=== PATIENT | female | born 1975 | race Caucasian/White ===

== ENCOUNTER 2020-07-03 12:13 | Emergency (ER) | payer BC ==
[2020-07-03] MEDS ORDERED: MORPHINE SULFATE 4 MG INJ IV ONE ×2 (12:43→14:32)
[2020-07-03] MEDS ORDERED: Pepcid 20 MG VIAL IV ONE ×2 (12:43→12:55)
[2020-07-03] MEDS ORDERED: Zofran 4 MG/2 ML VIAL IV ONE (12:43)
[2020-07-03] MEDS ORDERED: Sodium Chloride 0.9% 1000 ML 1,000 ML IV STA (12:43)
[2020-07-03] MEDS ORDERED: MORPHINE SULFATE 4 MG INJ ONE ×2 (12:55→14:36)
[2020-07-03] MEDS ORDERED: Sodium Chloride 0.9% 1000 ML 1,000 ML ONE (12:55)
[2020-07-03] MEDS ORDERED: Zofran 4 MG/2 ML VIAL ONE (12:55)
[2020-07-03 13:10] LABS: Absolute Neutrophil Ct (ANC) 2.32 (1.4-6.9); BASOPHIL % 0.2 % (0.0-0.4); Basophil (Absolute #) 0.01 (0-0.4); Eosinophil % 1.2 % (0.00-5.0); Eosinophil (Absolute #) 0.06 (0-0.5); Hematocrit 40.1 % (35-47); Hemoglobin 13.3 gm/dl (12.0-16.0); Lymphocyte (Absolute #) 2.12 (1.0-4.6); Lymphocytes % 43.4 % (24.0-44.0); Mean Cell Volume 85.5 fl (78-100); Mean Corpuscular Hemoglobin 28.4 pg (26-32); Mean Corpuscular Hgb Concent. 33.2 g/dl (32-36); Mean Platelet Volume 8.8 fl (7.5-11.0); Monocyte (Absolute #) 0.38 (0.0-1.3); Monocytes % 7.8 % (0.0-12.0); Neutrophil % 47.4 % (36.0-66.0); Platelet Count 266 K/mm3 (150-450); Red Blood Count 4.69 M/mm3 (4.1-5.4); Red Cell Distribution Width 13.6 % (11.5-14.0); White Blood Count 4.9 K/mm3 (4.0-10.5)
[2020-07-03 13:13] LABS: Appearance CLEAR (CLEAR); Bacteria FEW /HPF (NEGATIVE); Bilirubin NEGATIVE (NEGATIVE); Blood NEGATIVE Ery/ul (0-5); Epithelial Cells RARE /HPF (FEW); Glucose NEGATIVE (NEGATIVE); Ketones NEGATIVE (NEGATIVE); Leukocyte Esterase NEGATIVE (NEGATIVE); Mucus SLIGHT /HPF (NEGATIVE); Nitrite NEGATIVE (NEGATIVE); Protein,Urine Dip NEGATIVE (Negative); Specific Gravity 1.004 (1.005-1.025); Urobilinogen NEGATIVE mg/dL (0-1)
[2020-07-03 13:21] LABS: ALBUMIN 4.8 g/dL (3.5-5.0); ALKALINE PHOSPHATASE 55 U/L (38-126); AMYLASE 143 U/L (30-110); ANION GAP 10.9 MEQ/L (5-15); BLOOD UREA NITROGEN 18 mg/dL (7-17); CHLORIDE 102 mmol/L (98-107); Calcium 9.4 mg/dL (8.4-10.2); Carbon Dioxide 30 mmol/L (22-30); EST GLOMERULAR FILTRATION RATE > 60.0 ML/MIN; Glucose 94 mg/dL (74-106); LIPASE 200 U/L (23-300); Potassium 4.3 mmol/L (3.5-5.1); SGOT/AST 27 U/L (14-36); SGPT/ALT 18 U/L (0-35); SODIUM 138 mmol/L (137-145); Total Protein 8.8 g/dL (6.3-8.2)
--- NOTE | 2020-07-03 14:09 | ERPHSYRPT ---
- History of Present Illness Time Seen by Provider: 07/03/20 12:36 Historian: patient Exam Limitations: no limitations Patient Subjective Stated Complaint: pt has right upper quad pain since last night getting worse with nausea,BM today that was normal, no difficulty with voiding Triage Nursing Assessment: pt alert, walked in with face mask in place,holding onto right side of abd , no edema, skin w/d/p Physician History: 45 years old female presented to the ER with chief complaint of right upper quadrant pain sudden onset last night which lasted for almost an hour and eased up on its own before she went to bed. This morning she woke up with pain right upper quadrant again moderate to severe intensity, sharp shooting in nature, comes and goes, aggravated with palpation and no significant relieving factors, associated with nausea but no vomiting. Denies fever chills or cough. No sick contact. Timing/Duration: yesterday, sudden, worse Activities at Onset: rest Quality: sharpness, stabbing Abdominal Pain Onset Location: RUQ Pain Radiation: no radiation Severity of Pain-Max: severe Severity of Pain-Current: moderate Modifying Factors: Worsens With: palpation Associated Symptoms: nausea, No chest pain, No vomiting Previous symptoms: no prior history Allergies/Adverse Reactions: No Known Drug Allergies Allergy (Verified 07/03/20 12:28) Home Medications: Alprazolam 1 mg [Xanax 1 mg] 1 mg PO HSPRN PRN 08/02/13 [History] Estradiol 1 mg [Estrace 1 mg] 1 mg PO DAILY 08/02/13 [History] Levothyroxine Sodium 1 ea DAILY 07/03/20 [History] Hx Tetanus, Diphtheria Vaccination/Date Given: Yes Hx Influenza Vaccination/Date Given: No Hx Pneumococcal Vaccination/Date Given: No Immunizations Up to Date: Yes Travel Risk - International Travel Have you traveled outside of the country in past 3 weeks: No - Coronavirus Screening Are you exhibiting any of the following symptoms?: No Close contact with a COVID-19 positive Pt in past 14-21 Days: Yes - Review of Systems Constitutional: No Symptoms Eyes: No Symptoms Ears, Nose, & Throat: No Symptoms Respiratory: No Symptoms Cardiac: No Symptoms Abdominal/Gastrointestinal: Abdominal Pain, Nausea Genitourinary Symptoms: No Symptoms Musculoskeletal: No Symptoms Skin: No Symptoms Neurological: No Symptoms Psychological: No Symptoms Endocrine: No Symptoms Hematologic/Lymphatic: No Symptoms Immunological/Allergic: No Symptoms - Past Medical History Pertinent Past Medical History: Yes Psycho-Social History: Anxiety - Past Surgical History Past Surgical History: Yes (see history of present illness) Neuro Surgical History: No Pertinent History Cardiac: No Pertinent History Respiratory: No Pertinent History Gastrointestinal: No Pertinent History Genitourinary: No Pertinent History Musculoskeletal: Orthopedic Surgery Female Surgical History: Hysterectomy Other Surgical History: LEFT SHOULDER BONE SPURS SHAVED OFF, knee surg - Social History Smoking Status: Never smoker Exposure to second hand smoke: No Drug Use: none Patient Lives Alone: No - Female History Hx Last Menstrual Period: hyester Hx Now: No - Nursing Vital Signs Nursing Vital Signs: Initial Vital Signs Pulse Rate 96 H 07/03/20 14:51 Respiratory Rate 18 07/03/20 14:51 Blood Pressure 119/80 07/03/20 14:51 O2 Sat by Pulse Oximetry 97 07/03/20 14:51 Pain Scale Pain Intensity 0 - Physical Exam General Appearance: no apparent distress, alert Eye Exam: PERRL/EOMI Ears, Nose, Throat Exam: normal ENT inspection, TMs normal, pharynx normal Neck Exam: normal inspection, non-tender, supple, full range of motion Respiratory Exam: normal breath sounds, lungs clear Cardiovascular Exam: regular rate/rhythm, normal heart sounds Gastrointestinal/Abdomen Exam: soft, normal bowel sounds, tenderness (Right upper quadrant. Positive Armijo sign.), guarding Back Exam: normal inspection, normal range of motion Extremity Exam: normal inspection, normal range of motion Neurologic Exam: alert, oriented x 3, cooperative Skin Exam: normal color SpO2 Interpretation: normal O2 Delivery: Room Air Ordered Tests: Active Orders 24 hr Category Date Time Status IV Insertion STAT Care 07/03/20 12:43 Completed NPO (ED) STAT Care 07/03/20 12:43 Completed ABDOMEN AND PELVIS W CONTRAST [CT] Stat Exams 07/03/20 13:44 Completed GALLBLADDER [US] Stat Exams 07/03/20 16:47 Taken AMYLASE Stat Lab 07/03/20 12:43 Completed CBC W DIFF Stat Lab 07/03/20 12:43 Completed CMP Stat Lab 07/03/20 12:43 Completed LIPASE Stat Lab 07/03/20 12:43 Completed UA W/RFX UR CULTURE Stat Lab 07/03/20 13:01 Completed Medication Summary Discontinued Medications Generic Name Dose Route Start Last Admin Trade Name Prasanna PRN Reason Stop Dose Admin Al Hydrox/Mg Hydrox/Simethicone Confirm 07/03/20 14:36 Maalox Es 30 Ml Unit Dose Administered 07/03/20 14:37 Dose 30 ml .ROUTE .STK-MED ONE Famotidine 20 mg 07/03/20 12:43 07/03/20 13:02 Pepcid 20 Mg Vial IV 07/03/20 12:44 20 mg STAT ONE Administration Famotidine Confirm 07/03/20 12:55 Pepcid 20 Mg Vial Administered 07/03/20 12:56 Dose 20 mg IV .STK-MED ONE Sodium Chloride 1,000 mls @ 999 mls/hr 07/03/20 12:43 07/03/20 12:57 Sodium Chloride 0.9% 1000 Ml IV 07/03/20 13:43 999 mls/hr .Q1H1M STA Administration Sodium Chloride Confirm 07/03/20 12:55 Sodium Chloride 0.9% 1000 Ml Administered 07/03/20 12:56 Dose 1,000 mls @ ud .ROUTE .STK-MED ONE Lidocaine HCl Confirm 07/03/20 14:36 Xylocaine Hcl Viscous * Administered 07/03/20 14:37 Dose 15 ml .ROUTE .STK-MED ONE Magnesium Hydroxide 45 ml 07/03/20 14:32 07/03/20 17:03 Gi Cocktail 45 Ml (Maalox/Lidocaine) PO 07/03/20 14:33 Not Given STAT ONE Morphine Sulfate 4 mg 07/03/20 12:43 07/03/20 13:01 Morphine Sulfate 4 Mg Inj IV 07/03/20 12:44 4 mg STAT ONE Administration Morphine Sulfate Confirm 07/03/20 12:55 Morphine Sulfate 4 Mg Inj Administered 07/03/20 12:56 Dose 4 mg .ROUTE .STK-MED ONE Morphine Sulfate 4 mg 07/03/20 14:32 07/03/20 14:38 Morphine Sulfate 4 Mg Inj IV 07/03/20 14:33 4 mg STAT ONE Administration Morphine Sulfate Confirm 07/03/20 14:36 Morphine Sulfate 4 Mg Inj Administered 07/03/20 14:37 Dose 4 mg .ROUTE .STK-MED ONE Ondansetron HCl 4 mg 07/03/20 12:43 07/03/20 12:59 Zofran 4 Mg/2 Ml Vial IV 07/03/20 12:44 4 mg STAT ONE Administration Ondansetron HCl Confirm 07/03/20 12:55 Zofran 4 Mg/2 Ml Vial Administered 07/03/20 12:56 Dose 4 mg .ROUTE .STK-MED ONE Lab/Rad Data: Laboratory Result Diagrams 07/03/20 12:43 07/03/20 12:43 Laboratory Results 07/03/20 07/03/20 07/03/20 Range/Units 13:01 12:43 12:43 WBC 4.9 (4.0-10.5) K/mm3 RBC 4.69 (4.1-5.4) M/mm3 Hgb 13.3 (12.0-16.0) gm/dl Hct 40.1 (35-47) % MCV 85.5 (78-100) fl MCH 28.4 (26-32) pg MCHC 33.2 (32-36) g/dl RDW 13.6 (11.5-14.0) % Plt Count 266 (150-450) K/mm3 MPV 8.8 (7.5-11.0) fl Gran % 47.4 (36.0-66.0) % Eos # (Auto) 0.06 (0-0.5) Absolute Lymphs (auto) 2.12 (1.0-4.6) Absolute Monos (auto) 0.38 (0.0-1.3) Lymphocytes % 43.4 (24.0-44.0) % Monocytes % 7.8 (0.0-12.0) % Eosinophils % 1.2 (0.00-5.0) % Basophils % 0.2 (0.0-0.4) % Absolute Granulocytes 2.32 (1.4-6.9) Basophils # 0.01 (0-0.4) Sodium 138 (137-145) mmol/L Potassium 4.3 (3.5-5.1) mmol/L Chloride 102 (98-107) mmol/L Carbon Dioxide 30 (22-30) mmol/L Anion Gap 10.9 (5-15) MEQ/L BUN 18 H (7-17) mg/dL Creatinine 0.80 (0.52-1.04) mg/dL Estimated GFR > 60.0 ML/MIN Glucose 94 (74-106) mg/dL Calcium 9.4 (8.4-10.2) mg/dL Total Bilirubin 0.70 (0.2-1.3) mg/dL AST 27 (14-36) U/L ALT 18 (0-35) U/L Alkaline Phosphatase 55 (38-126) U/L Serum Total Protein 8.8 H (6.3-8.2) g/dL Albumin 4.8 (3.5-5.0) g/dL Amylase 143 H (30-110) U/L Lipase 200 (23-300) U/L Urine Color STRAW (YELLOW) Urine Appearance CLEAR (CLEAR) Urine pH 7.0 (5-6) Ur Specific [place] 1.004 (1.005-1.025) Urine Protein NEGATIVE (Negative) Urine Ketones NEGATIVE (NEGATIVE) Urine Blood NEGATIVE (0-5) Lance/ul Urine Nitrite NEGATIVE (NEGATIVE) Urine Bilirubin NEGATIVE (NEGATIVE) Urine Urobilinogen NEGATIVE (0-1) mg/dL Ur Leukocyte Esterase NEGATIVE (NEGATIVE) Urine WBC (Auto) 3-5 (0-5) /HPF Urine RBC (Auto) NONE (0-2) /HPF U Epithel Cells (Auto) RARE (FEW) /HPF Urine Bacteria (Auto) FEW (NEGATIVE) /HPF Urine Mucus (Auto) SLIGHT (NEGATIVE) /HPF Urine Culture Reflexed NO (NO) Urine Glucose NEGATIVE (NEGATIVE) mg/dL - Progress Progress: improved, pain not gone completely, re-examined Progress Note: 07/03/20 blood work-up is done for acute abdomen including CT abdomen pelvis with contrast which showed some element of gastritis but no acute cholecystitis. She has a negative ultrasound. Normal white count, unremarkable chemistries including liver functions. She is given symptomatic treatment with morphine/Pepcid/GI cocktail, on reevaluation feeling better. Her pain is not completely relieved. I believe she has gastritis, will start her on Carafate and Protonix and outpatient follow-up with primary care and gastroenterology r ecommended to have possible upper GI scope for further evaluation of gastritis. At this point patient does not need to be admitted or needs any further work-up and is stable for discharge with outpatient follow-up. Discussed signs symptoms of worsening needing return to ER which he seems understanding. Counseled pt/family regarding: lab results, diagnosis, need for follow-up, rad results - Departure Departure Disposition: Home Clinical Impression: Gastritis Qualifiers: Gastritis type: unspecified gastritis Chronicity: acute Gastritis bleeding: without bleeding Qualified Code(s): K29.00 - Acute gastritis without bleeding Condition: Stable Critical Care Time: No Referrals: JEFFERY MAI NP [Primary Care Provider] - (Call tomorrow for appointment) MARRY SHETH JR [NON-STAFF PHY W/O PRIVILEGES] - (Call tomorrow for appointment) Instructions: Acute Abdomen (Belly Pain), Adult (DC), Gastritis (DC) Additional Instructions: Do not take ibuprofen. Take Tylenol as needed. Follow-up with primary care and gastroenterology for reevaluation. Return to ER for any worsening. Prescriptions: Sucralfate 1 gm [Carafate 1 GM] 1 g PO ACHS #60 tablet PANTOPRAZOLE 40 mg Tablet [Protonix 40MG Tablet] 40 mg PO QAM 30 Days #30 tab
[2020-07-03] MEDS ORDERED: MAALOX ES 30 ML UNIT DOSE ONE (14:36)
[2020-07-03] MEDS ORDERED: XYLOCAINE HCl Viscous ONE (14:36)
[2020-07-03] MEDS: GI COCKTAIL 45 ML (Maalox/Lidocaine) PO ONE ×2 (14:38→17:03)
[2020-07-03 16:35] VITALS: BP 144/76; PULSE 59; O2SAT 99
--- NOTE | 2020-07-03 16:53 | XRAY ---
Indication: Right upper quadrant pain and nausea. Multiple contiguous axial images obtained through the abdomen and pelvis using 80 cc Isovue 370 contrast only. Comparison: None Lung bases demonstrates mild dependent atelectasis. No infiltrate or effusion. Heart is not enlarged. Noncontrasted stomach and bowel loops appear nonobstructed. Appendectomy and hysterectomy reported. There is mild diffuse fecal debris throughout. No free fluid/air. Tiny calcified splenic granulomas. The remaining liver, gallbladder, pancreas, spleen, adrenal glands, kidneys, ureters, bladder, and aorta appear unremarkable. No pathologic retroperitoneal lymphadenopathy. Osseous structures intact. No ventral or inguinal hernias. Impression: 1. Mild diffuse fecal stasis without obstruction and incidental old granulomatous disease. 2. Remaining CT abdomen/pelvis with contrast exam is negative. Comment: Preliminary interpretation was made by [facility]. No critical discrepancy.
--- NOTE | 2020-07-04 08:39 | XRAY ---
Indication: Right upper quadrant pain. Nausea. Two-dimensional gallbladder sonogram performed. Comparison: April 29, 2018. Gallbladder normally distended again without gallstones, wall thickening, or pericholecystic fluid. Common bile duct measures 3.3 mm. No intrahepatic biliary distention. Remaining visualized portions of the liver, pancreas, and right kidney appear sonographically normal. Right kidney measures 8.4 cm in length. No ascites. Impression: Continued negative gallbladder sonogram. Comment: Preliminary report was given.
== END 2020-07-03 16:58 | disposition home or self-care (01) ==
LOC: ED 12:13
DX: K29.00 Acute gastritis without bleeding (principal)
CPT/HCPCS: 36000; 36415; 74177; 76705; 80053; 81001; 82150; 83690; 85025; 96360; 96374; 96375; 96376; 99284; J2270; J2405; A9270-GY

== ENCOUNTER 2023-04-08 10:39 | Emergency (ER) | payer OTHER ==
--- NOTE | 2023-04-08 10:42 | ERPHSYRPT ---
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 She describes the pain as a burning pain. The pain recurred last evening and lasted for 4 hours. There was some radiation into her right arm and hand but this resolved. Patient is under a lot of stress at her work. Patient has a history of hypothyroidism and anxiety. She is not short of breath. She has no documented coronary artery disease. She has not seen a deboning team leader in the past. Timing/Duration: week(s) (4) Activities at Onset: none Quality: burning Location: substernal, central Chest Pain Radiation: back Severity of Pain-Max: mild Severity of Pain-Current: mild Modifying Factors: Improves With: nothing Associated Symptoms: denies symptoms Prior Chest Pain/Cardiac Workup: stress test (A few years ago) Nitro Today/Relief: no nitro taken today Aspirin Treatment Today: no aspirin today Allergies/Adverse Reactions: No Known Drug Allergies Allergy (Verified 07/03/20 12:28) Home Medications: ALPRAZolam 1 MG [Xanax 1 mg] 1 mg PO HSPRN PRN 08/02/13 [History] Estradiol 1 mg [Estrace 1 mg] 1 mg PO DAILY 08/02/13 [History] Levothyroxine Sodium 1 ea DAILY 07/03/20 [History] Zolpidem Tartrate 10 mg [Ambien 10 MG] 10 mg PO HS 04/08/23 [History] Hx Tetanus, Diphtheria Vaccination/Date Given: Yes Hx Influenza Vaccination/Date Given: No Hx Pneumococcal Vaccination/Date Given: No Travel Risk - International Travel Have you traveled outside of the country in past 3 weeks: No - Coronavirus Screening Are you exhibiting any of the following symptoms?: No Close contact with a COVID-19 positive Pt in past 14-21 Days: No - Review of Systems Constitutional: No Symptoms Eyes: No Symptoms Ears, Nose, & Throat: No Symptoms Respiratory: No Symptoms Cardiac: Chest Pain (Described as burning) Abdominal/Gastrointestinal: No Symptoms Genitourinary Symptoms: No Symptoms Musculoskeletal: No Symptoms Skin: No Symptoms Neurological: No Symptoms Psychological: No Symptoms Endocrine: No Symptoms Hematologic/Lymphatic: No Symptoms Immunological/Allergic: No Symptoms All Other Systems: Reviewed and Negative - Past Medical History Pertinent Past Medical History: Yes Psycho-Social History: Anxiety - Past Surgical History Past Surgical History: Yes (see history of present illness) Neuro Surgical History: No Pertinent History Cardiac: No Pertinent History Respiratory: No Pertinent History Gastrointestinal: No Pertinent History Genitourinary: No Pertinent History Musculoskeletal: Orthopedic Surgery Female Surgical History: Hysterectomy Other Surgical History: LEFT SHOULDER BONE SPURS SHAVED OFF, knee surg - Social History Smoking Status: Never smoker Exposure to second hand smoke: No Drug Use: none Patient Lives Alone: No - Nursing Vital Signs Nursing Vital Signs: Initial Vital Signs Temperature 97.2 F 04/08/23 10:41 Pulse Rate 74 04/08/23 10:41 Respiratory Rate 20 04/08/23 10:41 Blood Pressure 147/83 04/08/23 10:41 O2 Sat by Pulse Oximetry 95 04/08/23 10:41 Pain Scale Pain Intensity 0 - Physical Exam General Appearance: no apparent distress, alert, anxiety Eye Exam: PERRL/EOMI, eyes nml inspection Ears, Nose, Throat Exam: normal ENT inspection, moist mucous membranes Neck Exam: normal inspection, non-tender, supple, full range of motion Respiratory Exam: normal breath sounds, chest tenderness, lungs clear, No respiratory distress, No airway intact Cardiovascular Exam: regular rate/rhythm, normal heart sounds, normal peripheral pulses Gastrointestinal/Abdomen Exam: soft, normal bowel sounds, No tenderness Pelvic Exam: not done Rectal Exam: not done Back Exam: normal inspection, normal range of motion, No CVA tenderness, No vertebral tenderness Extremity Exam: normal inspection, normal range of motion, pelvis stable Neurologic Exam: alert, oriented x 3, cooperative, scrap metal collector II-XII nml as tested, normal mood/affect, nml cerebellar function, nml station & gait, sensation nml Skin Exam: normal color, warm, dry Lymphatic Exam: No adenopathy SpO2 Interpretation: normal O2 Delivery: Room Air - Course Nursing assessment & vital signs reviewed: Yes EKG Interpreted by Me: RATE (69), Sinus Rhythm, NORMAL AXIS, NORMAL INTERVALS, NORMAL QRS, Non-specific ST Changes, Other (No acute ischemic changes on today's twelve-lead EKG.) Ordered Tests: Active Orders 24 hr Category Date Time Status Pasteurizer STAT Care 04/08/23 10:44 Active EKG-ER Only STAT Care 04/08/23 10:43 Active IV Insertion STAT Care 04/08/23 10:43 Active Pulse Oximetry (ED) STAT Care 04/08/23 10:43 Active CHEST 1 VIEW (PORTABLE) Stat Exams 04/08/23 10:43 Completed CBC W DIFF Stat Lab 04/08/23 11:11 Completed CMP Stat Lab 04/08/23 11:11 Completed CULTURE,URINE Stat Lab 04/08/23 11:27 Received D-DIMER QUANTITATIVE Stat Lab 04/08/23 11:11 Completed T4 (Thyroxine) Stat Lab 04/08/23 11:11 Completed TROPONIN Q4H Lab 04/08/23 11:11 Completed TROPONIN Q4H Lab 04/08/23 14:45 Ordered TROPONIN Q4H Lab 04/08/23 18:45 Ordered TSH, 3RD Generation Stat Lab 04/08/23 11:11 Completed UA W/RFX UR CULTURE Stat Lab 04/08/23 11:27 Completed Medication Summary Generic Name Dose Route Start Last Admin Trade Name Freq PRN Reason Stop Dose Admin Ceftriaxone Sodium/Dextrose 1 g in 50 mls @ 100 mls/hr 04/08/23 12:22 Rocephin 1 Gm-D5w 50 Ml Bag IV 04/08/23 12:51 STAT STA Discontinued Medications Generic Name Dose Route Start Last Admin Trade Name Freq PRN Reason Stop Dose Admin Aspirin 324 mg 04/08/23 10:43 04/08/23 11:02 Aspirin 81 Mg Tab.Chew PO 04/08/23 10:44 324 mg STAT ONE Administration Aspirin Confirm 04/08/23 11:03 Aspirin 81 Mg Tab.Chew Administered 04/08/23 11:04 Dose 324 mg .ROUTE .STK-MED ONE Lab/Rad Data: Laboratory Result Diagrams 04/08/23 11:11 04/08/23 11:11 Laboratory Results 04/08/23 04/08/23 04/08/23 Range/Units 11:27 11:11 11:11 WBC (4.0-10.5) x10^3/uL RBC (4.1-5.4) x10^6/uL Hgb (12.0-16.0) g/dL Hct (35-47) % MCV (78-100) fL MCH (26-32) pg MCHC (32-36) g/dL RDW (11.5-14.0) % Plt Count (150-450) x10^3/uL MPV (7.5-11.0) fL Gran % (36.0-66.0) % Immature Gran % (Auto) (0.00-0.4) % Nucleat RBC Rel Count (0.00-0.1) % Eos # (Auto) (0-0.5) x10^3/uL Immature Gran # (Auto) (0.00-0.03) x10^3u/L Absolute Lymphs (auto) (1.0-4.6) x10^3/uL Absolute Monos (auto) (0.0-1.3) x10^3/uL Absolute Nucleated RBC (0.00-0.01) x10^3u/L Lymphocytes % (24.0-44.0) % Monocytes % (0.0-12.0) % Eosinophils % (0.00-5.0) % Basophils % (0.0-0.4) % Absolute Granulocytes (1.4-6.9) x10^3/uL Basophils # (0-0.4) x10^3/uL D-Dimer 0.24 (0.0-0.50) mg/L Sodium (137-145) mmol/L Potassium (3.5-5.1) mmol/L Chloride (98-107) mmol/L Carbon Dioxide (22-30) mmol/L Anion Gap (5-15) MEQ/L BUN (7-17) mg/dL Creatinine (0.52-1.04) mg/dL Estimated GFR ML/MIN Glucose (74-106) mg/dL Calcium (8.4-10.2) mg/dL Total Bilirubin (0.2-1.3) mg/dL AST (14-36) U/L ALT (0-35) U/L Alkaline Phosphatase (38-126) U/L Troponin I < 0.012 (0.000-0.034) ng/mL Serum Total Protein (6.3-8.2) g/dL Albumin (3.5-5.0) g/dL Thyroxine (T4) (5.53-10.96) ug/dL TSH 3rd Generation (0.47-4.68) mIU/L Urine Color Yellow (Yellow) Urine Appearance Turbid A (Clear) Urine pH 7.5 (4.6-8.0) Ur Specific [place] 1.020 (1.005-1.030) Urine Protein Trace A (Negative) Urine Glucose (UA) Negative (Negative) mg/dL Urine Ketones Negative (Negative) Urine Blood Negative (Negative) Urine Nitrite Negative (Negative) Urine Bilirubin Negative (Negative) Urine Urobilinogen 1.0 A (0.2) mg/dL Ur Leukocyte Esterase Moderate A (Negative) U Hyaline Cast (Auto) 6-10 A (0-2) /LPF Urine Microscopic RBC 3-5 (0-5) /HPF Urine Microscopic WBC 21-50 A (0-5) /HPF Ur Epithelial Cells Moderate A (None Seen) /HPF Urine Bacteria Many A (None Seen) /HPF Urine Culture Reflexed YES (NO) 04/08/23 04/08/23 Range/Units 11:11 11:11 WBC 4.0 (4.0-10.5) x10^3/uL RBC 4.46 (4.1-5.4) x10^6/uL Hgb 12.5 (12.0-16.0) g/dL Hct 38.9 (35-47) % MCV 87.2 (78-100) fL MCH 28.0 (26-32) pg MCHC 32.1 (32-36) g/dL RDW 13.3 (11.5-14.0) % Plt Count 264 (150-450) x10^3/uL MPV 8.2 (7.5-11.0) fL Gran % 47.9 (36.0-66.0) % Immature Gran % (Auto) 0.5 H (0.00-0.4) % Nucleat RBC Rel Count 0.0 (0.00-0.1) % Eos # (Auto) 0.06 (0-0.5) x10^3/uL Immature Gran # (Auto) 0.02 (0.00-0.03) x10^3u/L Absolute Lymphs (auto) 1.70 (1.0-4.6) x10^3/uL Absolute Monos (auto) 0.26 (0.0-1.3) x10^3/uL Absolute Nucleated RBC 0.00 (0.00-0.01) x10^3u/L Lymphocytes % 43.0 (24.0-44.0) % Monocytes % 6.6 (0.0-12.0) % Eosinophils % 1.5 (0.00-5.0) % Basophils % 0.5 (0.0-0.4) % Absolute Granulocytes 1.89 (1.4-6.9) x10^3/uL Basophils # 0.02 (0-0.4) x10^3/uL D-Dimer (0.0-0.50) mg/L Sodium 140 (137-145) mmol/L Potassium 4.2 (3.5-5.1) mmol/L Chloride 104 (98-107) mmol/L Carbon Dioxide 25 (22-30) mmol/L Anion Gap 14.5 (5-15) MEQ/L BUN 15 (7-17) mg/dL Creatinine 0.94 (0.52-1.04) mg/dL Estimated GFR > 60.0 ML/MIN Glucose 105 (74-106) mg/dL Calcium 8.8 (8.4-10.2) mg/dL Total Bilirubin 0.70 (0.2-1.3) mg/dL AST 26 (14-36) U/L ALT 24 (0-35) U/L Alkaline Phosphatase 65 (38-126) U/L Troponin I (0.000-0.034) ng/mL Serum Total Protein 7.8 (6.3-8.2) g/dL Albumin 4.4 (3.5-5.0) g/dL Thyroxine (T4) 9.26 (5.53-10.96) ug/dL TSH 3rd Generation 4.470 (0.47-4.68) mIU/L Urine Color (Yellow) Urine Appearance (Clear) Urine pH (4.6-8.0) Ur Specific [place] (1.005-1.030) Urine Protein (Negative) Urine Glucose (UA) (Negative) mg/dL Urine Ketones (Negative) Urine Blood (Negative) Urine Nitrite (Negative) Urine Bilirubin (Negative) Urine Urobilinogen (0.2) mg/dL Ur Leukocyte Esterase (Negative) U Hyaline Cast (Auto) (0-2) /LPF Urine Microscopic RBC (0-5) /HPF Urine Microscopic WBC (0-5) /HPF Ur Epithelial Cells (None Seen) /HPF Urine Bacteria (None Seen) /HPF Urine Culture Reflexed (NO) - Progress Progress: improved, re-examined Air Movement: good Progress Note: 04/08/23 12:24 This patient's medical issue is 1 of moderate complexity. The level of c omplexity is based on review of the patient's past medical history, review the patient's medication list, review of the patient's drug allergy list, history of present illness and physical findings on examination. This patient's work-up includes placement of intravenous line, twelve-lead EKG, D-dimer level, troponin level, CBC, CMP and urinalysis as well as T4 and TSH levels. We also performed a chest x-ray. This chest x-ray was interpreted by the radiologist and I reviewed the impression. There is no evidence of any acute cardiopulmonary process. I reviewed the results of the blood and urine as well as the twelve- lead EKG. Patient does have a significant urinary tract infection. There are no other acute, emergent medical findings. We will provide the patient with 1 g of intravenous Rocephin and then remotely send a prescription of Cipro 500 mg orally twice a day for 7 days to her pharmacy. Patient is also encouraged to follow-up with her primary care provider today to make arrangements for follow- up appointment for further evaluation including cardiac stress test and/or ref erral to a deboning team leader. Blood Culture(s) Obtained: No Antibiotics given: Yes Counseled pt/family regarding: lab results, diagnosis, need for follow-up, rad results Medical Desision Making - Diagnostic Testing Diagnostic test were ordered, analyzed, and reviewed by me: Yes Radiological Interpretation: Reviewed by me, Teleradiologist Report - Risk of complications The pt has a mod risk of morbidity or mortality based on: Need for prescription drug management - Departure Departure Disposition: Home Clinical Impression: Chest pain, UTI (urinary tract infection) Condition: Stable Critical Care Time: No Referrals: JEFFERY MAI NP [Primary Care Provider] - Follow up/PCP as directed Additional Instructions: Drink plenty of fluids. Take your antibiotics as prescribed. Take your other medication as prescribed. Call your primary care provider today to make arrangements for follow-up appointment including repeat cardiac stress test and/or referral to deboning team leader for further evaluation management. Prescriptions: Ciprofloxacin [Cipro 500 MG] 500 mg PO BID #14 tablet
[2023-04-08] MEDS ORDERED: BABY ASPIRIN 81 MG CHEW PO ONE (10:43)
[2023-04-08 10:53] VITALS: TEMP 97.2
[2023-04-08] MEDS ORDERED: BABY ASPIRIN 81 MG CHEW ONE (11:03)
[2023-04-08 11:14] LABS: Absolute Neutrophil Ct (ANC) 1.89 x10^3/uL (1.4-6.9); BASOPHIL % 0.5 % (0.0-0.4); Basophil (Absolute #) 0.02 x10^3/uL (0-0.4); Eosinophil % 1.5 % (0.00-5.0); Eosinophil (Absolute #) 0.06 x10^3/uL (0-0.5); Hematocrit 38.9 % (35-47); Hemoglobin 12.5 g/dL (12.0-16.0); IMMATURE GRAN # 0.02 x10^3u/L (0.00-0.03); IMMATURE GRAN % 0.5 % (0.00-0.4); Mean Cell Volume 87.2 fL (78-100); Mean Corpuscular Hgb Concent. 32.1 g/dL (32-36); Mean Platelet Volume 8.2 fL (7.5-11.0); Monocyte (Absolute #) 0.26 x10^3/uL (0.0-1.3); Monocytes % 6.6 % (0.0-12.0); Neutrophil % 47.9 % (36.0-66.0); Platelet Count 264 x10^3/uL (150-450); Red Blood Count 4.46 x10^6/uL (4.1-5.4); Red Cell Distribution Width 13.3 % (11.5-14.0)
--- NOTE | 2023-04-08 11:29 | XRAY ---
Indication: Chest pain. 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
[2023-04-08 11:44] LABS: Appearance Turbid (Clear); Bacteria Many /HPF (None Seen); Bilirubin Negative (Negative); Blood Negative (Negative); Epithelial Cells Moderate /HPF (None Seen); Glucose, Urine Negative (Negative); Ketones Negative (Negative); Leukocyte Esterase Moderate (Negative); Nitrite Negative (Negative); Ph 7.5 (4.6-8.0); Protein,Urine Dip Trace (Negative); WBC 21-50 /HPF (0-5)
[2023-04-08 11:56] LABS: ADD URINE CULTURE? YES (NO)
[2023-04-08 11:58] LABS: ALBUMIN 4.4 g/dL (3.5-5.0); ALKALINE PHOSPHATASE 65 U/L (38-126); ANION GAP 14.5 MEQ/L (5-15); BLOOD UREA NITROGEN 15 mg/dL (7-17); CHLORIDE 104 mmol/L (98-107); Calcium 8.8 mg/dL (8.4-10.2); Carbon Dioxide 25 mmol/L (22-30); Creatinine 1 0.94 mg/dL (0.52-1.04); EST GLOMERULAR FILTRATION RATE > 60.0 ML/MIN; Glucose 105 mg/dL (74-106); Potassium 4.2 mmol/L (3.5-5.1); SGOT/AST 26 U/L (14-36); SGPT/ALT 24 U/L (0-35); SODIUM 140 mmol/L (137-145); T4 (Thyroxine) 9.26 ug/dL (5.53-10.96); Total Protein 7.8 g/dL (6.3-8.2)
[2023-04-08 12:07] VITALS: RESP 13; O2SAT 95
[2023-04-08 12:15] VITALS: BP 137/80; PULSE 65
[2023-04-08] MEDS ORDERED: ROCEPHIN 1 Gm-D5w 50 ml Bag** 1 G/50 ML IVPB IV STA (12:22)
[2023-04-08] MEDS ORDERED: ROCEPHIN 1 Gm-D5w 50 ml Bag** 1 G/50 ML IVPB IV ONE (12:29)
== END 2023-04-08 13:15 | disposition home or self-care (01) ==
LOC: ED 10:39
DX: N39.0 Urinary tract infection, site not specified (principal); R07.9 Chest pain, unspecified; Z79.899 Other long term (current) drug therapy
CPT/HCPCS: 36000; 36415; 71045; 80053; 81001; 84436; 84443; 84484; 85025; 85379; 87086; 93005; 93041; 94760; 96365; 99284; J0696; A9270-GY